=== PATIENT | male | born 1945 | race Caucasian/White ===

== ENCOUNTER 2016-03-25 10:25 | Observation (INO) | payer MEDICARE, OTHER ==
[2016-03-25] VITALS (8 sets, daily range): BP systolic 88–165; BP diastolic 54–95; PULSE 57–98; RESP 18–20; TEMP 96.1–98.6; O2SAT 96–100
[~2016-03-25] VITALS: Ht 190.5 cm; Wt 128.0 kg
[2016-03-25] MEDS ORDERED: METF1000 PO ×2 (10:58)
[2016-03-25] MEDS ORDERED: ASPI-147 PO (10:58)
[2016-03-25] MEDS ORDERED: PIOG15TA5 PO (10:58)
[2016-03-25] MEDS ORDERED: RANI150T PO (10:58)
[2016-03-25] MEDS ORDERED: METO100T PO (10:58)
[2016-03-25] MEDS ORDERED: ZOCO20TA PO (10:58)
[2016-03-25] MEDS ORDERED: SLO-500T PO (10:58)
[2016-03-25] MEDS ORDERED: GLIP10TA6 PO (10:58)
[2016-03-25] MEDS ORDERED: OMEG100010 PO (10:58)
[2016-03-25] MEDS ORDERED: AMLO10TA2 PO (10:58)
[2016-03-25] MEDS ORDERED: NITROGLYCERIN 2% OINT 1 GM PACKET TOP ONE (11:00)
[2016-03-25] MEDS ORDERED: SODIUM CHLORID 0.9% 500 ML INJ 500 ML IV ONE ×2 (11:00→12:30)
[2016-03-25] MEDS ORDERED: SODIUM CHLORIDE 0.9% FLUSH 5 ML FLUSH IVF PRN ×2 (11:00→13:30)
[2016-03-25] MEDS ORDERED: NITROGLYCERIN 0.4 MG SL 25 TABS/BTL SL ONE (11:00)
--- NOTE | 2016-03-25 11:06 | PD ---
HPI Chief Complaint: Chest Pain Time Seen by Provider: 10:41 Travel History International Travel<30 days: No Contact w/Intl Traveler<30days: No Traveled to known affect area: No History of Present Illness HPI Patient is a 70-year-old male who presents to the emergency department for two to three-week history of progressing shortness of breath that is worse with exertion. The patient then developed chest pain is located over the epigastrium area, like a "hiatal hernia ", and similar to his previous myocardial infarction. The patient also notes increasing shortness of breath and mild diaphoresis, according to the 's report. The patient does note the chest pain as "nagging ", associated with exertional shortness of breath, but no nausea or vomiting. The patient does have a history of previous myocardial infarction with previous CABG as well as a stat placed by his escort blind 2 years ago, Dr. Pulido. The patient does have a history of hypertension, hyperlipidemia, diabetes, and CAD with previous intervention. The patient called his escort blind office earlier today, Dr. Pulido, and was referred to the emergency department for further evaluation. PFSH Past Medical History Cardiac Catheterization: Yes (stents x2) Cardiovascular Problems: Yes ([place]) Diabetes: Yes Patient Takes Glucophage: Yes Hypertension: Yes Musculoskeletal: Yes (sciatica pain) Myocardial Infarction: Yes Tetanus Vaccination: Unknown Influenza Vaccination: No Past Surgical History Coronary Artery Bypass Graft: Yes (4 vessels) Social History Alcohol Use: No Tobacco Use: No Substance Use: No Allergies-Medications (Allergen,Severity, Reaction): Coded Allergies: No Known Allergies (Unverified , 03/25/16) Reported Meds & Prescriptions Reported Meds & Active Scripts Active Reported [place] 3 1000 mg ([place]-3 Fatty Acids) 1 Cap Cap Unknown Dose PO DAILY Slo-Niacin (Niacin) 500 Mg Tab 1,000 Mg PO DAILY Zocor (Simvastatin) 20 Mg Tab 20 Mg PO DAILY Pioglitazone (Pioglitazone HCl) 15 Mg Tab 15 Mg PO DAILY Glipizide 10 Mg Tab 10 Mg PO BIDAC Take 30 minutes before a meal Metoprolol Tartrate 100 Mg Tab 100 Mg PO BID Amlodipine (Amlodipine Besylate) 10 Mg Tab 10 Mg PO DAILY Ranitidine (Ranitidine HCl) 150 Mg Tab 150 Mg PO BID Metformin (Metformin HCl) 1,000 Mg Tab 1,500 Mg PO HS With meals Metformin (Metformin HCl) 1,000 Mg Tab 1,000 Mg PO AC BREAKFAST With meals Ecotrin Low Strength (Aspirin) 81 Mg Tabdr 162 Mg PO DAILY Review of Systems Except as stated in HPI: all other systems reviewed are Neg General / Constitutional: No: Fever Cardiovascular: Positive: Chest Pain or Discomfort, Diaphoresis, Dyspnea on exertion Respiratory: Positive: Shortness of Breath Gastrointestinal: No: Nausea, Vomiting, Abdominal Pain Musculoskeletal: Positive: Other (sciatica), No: Edema Physical Exam Narrative GENERAL: Awake, alert, pleasant 70-year-old male who appears his stated age and is in no acute respiratory distress. SKIN: Warm and dry. HEAD: Atraumatic. Normocephalic. EYES: No injection or drainage. ENT: No nasal bleeding or discharge. Mucous membranes pink and moist. NECK: Trachea midline. No JVD. CARDIOVASCULAR: Regular rate and rhythm. No murmur appreciated. Well-healed midline scar. RESPIRATORY: No accessory muscle use. Clear to auscultation. Breath sounds equal bilaterally. GASTROINTESTINAL: Abdomen soft, non-tender, nondistended. Obese, no rebound tenderness. MUSCULOSKELETAL: No obvious deformities. No clubbing. No cyanosis. No edema. Chronic venous stasis changes of the left lower extremity. NEUROLOGICAL: Awake and alert. No obvious cranial nerve deficits. Motor grossly within normal limits. Normal speech. PSYCHIATRIC: Appropriate mood and affect; insight and judgment normal. Data Data Last Documented VS Vital Signs Date Time Temp Pulse Resp B/P Pulse Ox O2 Delivery O2 Flow Rate FiO2 03/25/16 11:39 65 18 88/54 100 Nasal Cannula 2 03/25/16 10:42 98.6 Orders Electrocardiogram (03/25/16 ) B-Type Natriuretic Peptide (03/25/16 10:57) Ckmb (Isoenzyme) Profile (03/25/16 10:57) Complete Blood Count With Diff (03/25/16 10:57) Comprehensive Metabolic Panel (03/25/16 10:57) Magnesium (Mg) (03/25/16 10:57) Prothrombin Time / Inr (Pt) (03/25/16 10:57) Act Partial Throm Time (Ptt) (03/25/16 10:57) Troponin I (03/25/16 10:57) Lipase (03/25/16 10:57) Chest, Single Ap (03/25/16 10:57) Ecg Monitoring (03/25/16 10:57) Bilateral Bp Monitoring (03/25/16 10:57) Iv Access Insert/Monitor (03/25/16 10:57) Oximetry (03/25/16 10:57) Oxygen Administration (03/25/16 10:57) Nitroglycerin 2% Oint (Nitroglycerin 2% (03/25/16 11:00) Sodium Chloride 0.9% Flush (Ns Flush) (03/25/16 11:00) Nitroglycerin Sl (Nitrostat Sl) (03/25/16 11:00) Sodium Chlorid 0.9% 500 Ml Inj (Ns 500 M (03/25/16 11:00) Admit Order (Ed Use Only) (03/25/16 12:20) Sodium Chlorid 0.9% 500 Ml Inj (Ns 500 M (03/25/16 12:30) Labs Laboratory Tests Test 03/25/16 11:00 White Blood Count 7.7 TH/MM3 Red Blood Count 4.64 MIL/MM3 Hemoglobin 13.8 GM/DL Hematocrit 40.2 % Mean Corpuscular Volume 86.6 FL Mean Corpuscular Hemoglobin 29.8 PG Mean Corpuscular Hemoglobin 34.4 % Concent Red Cell Distribution Width 13.4 % Platelet Count 242 TH/MM3 Mean Platelet Volume 8.2 FL Neutrophils (%) (Auto) 63.3 % Lymphocytes (%) (Auto) 25.2 % Monocytes (%) (Auto) 9.5 % Eosinophils (%) (Auto) 1.5 % Basophils (%) (Auto) 0.5 % Neutrophils # (Auto) 4.9 TH/MM3 Lymphocytes # (Auto) 1.9 TH/MM3 Monocytes # (Auto) 0.7 TH/MM3 Eosinophils # (Auto) 0.1 TH/MM3 Basophils # (Auto) 0.0 TH/MM3 CBC Comment DIFF FINAL Differential Comment Prothrombin Time 11.2 SEC Prothromb Time International 1.0 RATIO Ratio Activated Partial 27.7 SEC Thromboplast Time Sodium Level 140 MEQ/L Potassium Level 4.6 MEQ/L Chloride Level 108 MEQ/L Carbon Dioxide Level 21.5 MEQ/L Anion Gap 11 MEQ/L Blood Urea Nitrogen 23 MG/DL Creatinine 1.69 MG/DL Estimat Glomerular Filtration 40 ML/MIN Rate Random Glucose 186 MG/DL Calcium Level 9.0 MG/DL Magnesium Level 1.6 MG/DL Total Bilirubin 0.6 MG/DL Aspartate Amino Transf 14 U/L (AST/SGOT) Alanine Aminotransferase 21 U/L (ALT/SGPT) Alkaline Phosphatase 64 U/L Total Creatine Kinase 67 U/L Troponin I LESS THAN 0.02 NG/ML B-Type Natriuretic Peptide 122 PG/ML Total Protein 7.0 GM/DL Albumin 3.4 GM/DL Lipase 229 U/L Exceptions Acute Myocardial Infarction ASA Not Given on Arrival: Already taken by patient Aspirin Comment: patient took to aspirin prior to arrival MDM Medical Decision Making Medical Screen Exam Complete: Yes Emergency Medical Condition: Yes Medical Record Reviewed: Yes Interpretation(s) EKG reveals normal sinus rhythm with sinus arrhythmia. Intraventricular conduction delay with QRS of 145 ms. Last Impressions Chest X-Ray 03/25/16 1057 Signed Impressions: Service Date/Time: Friday, March 25, 2016 10:56 - CONCLUSION: 1. Post surgical changes. No acute cardiopulmonary findings. Jamie Daniels MD Laboratory Tests Test 03/25/16 11:00 White Blood Count 7.7 TH/MM3 Red Blood Count 4.64 MIL/MM3 Hemoglobin 13.8 GM/DL Hematocrit 40.2 % Mean Corpuscular Volume 86.6 FL Mean Corpuscular Hemoglobin 29.8 PG Mean Corpuscular Hemoglobin 34.4 % Concent Red Cell Distribution Width 13.4 % Platelet Count 242 TH/MM3 Mean Platelet Volume 8.2 FL Neutrophils (%) (Auto) 63.3 % Lymphocytes (%) (Auto) 25.2 % Monocytes (%) (Auto) 9.5 % Eosinophils (%) (Auto) 1.5 % Basophils (%) (Auto) 0.5 % Neutrophils # (Auto) 4.9 TH/MM3 Lymphocytes # (Auto) 1.9 TH/MM3 Monocytes # (Auto) 0.7 TH/MM3 Eosinophils # (Auto) 0.1 TH/MM3 Basophils # (Auto) 0.0 TH/MM3 CBC Comment DIFF FINAL Differential Comment Prothrombin Time 11.2 SEC Prothromb Time International 1.0 RATIO Ratio Activated Partial 27.7 SEC Thromboplast Time Sodium Level 140 MEQ/L Potassium Level 4.6 MEQ/L Chloride Level 108 MEQ/L Carbon Dioxide Level 21.5 MEQ/L Anion Gap 11 MEQ/L Blood Urea Nitrogen 23 MG/DL Creatinine 1.69 MG/DL Estimat Glomerular Filtration 40 ML/MIN Rate Random Glucose 186 MG/DL Calcium Level 9.0 MG/DL Magnesium Level 1.6 MG/DL Total Bilirubin 0.6 MG/DL Aspartate Amino Transf 14 U/L (AST/SGOT) Alanine Aminotransferase 21 U/L (ALT/SGPT) Alkaline Phosphatase 64 U/L Total Creatine Kinase 67 U/L Troponin I LESS THAN 0.02 NG/ML B-Type Natriuretic Peptide 122 PG/ML Total Protein 7.0 GM/DL Albumin 3.4 GM/DL Lipase 229 U/L Differential Diagnosis Differential diagnosis includes acute coronary syndrome, STEMI, cardiomyopathy, congestive heart failure, pleural effusion, pulmonary embolism, pneumonia, deconditioning. Narrative Course IV was established, labs are drawn and sent, and the patient was placed on cardiac telemetry monitoring and continuous pulse oximetry monitoring. EKG was ordered and interpreted. Chest x-ray was ordered. The patient took 2 aspirin prior to arrival. The patient was administered nitroglycerin sublingual and placed on Nitropaste. The patient's chest pain did improve with nitroglycerin. However, his blood pressure did decrease, therefore, patient was placed on IV fluids. Initial troponin is negative. I had a discussion with the patient's escort blind, Dr. Pulido, who requests admission to the chest pain Center. I will discuss the findings and the case with the chest pain physician when he evaluates the patient. Physician Communication Physician Communication I discussed the patient with Dr. Pulido who agrees with 23 hour observation to the chest pain Center. Diagnosis Primary Impression: Chest pain Qualified Code: R07.2 - Precordial pain Admitting Information Admitting Physician Requests: Observation Condition: Stable Charli Renner MD Mar 25, 2016 11:06
[2016-03-25 11:09] LABS: AUTOMATED NEUTROPHIL # 4.9 TH/MM3 (1.8-7.7); BASOPHIL % 0.5 % (0.0-2.0); EOSINOPHIL # 0.1 TH/MM3 (0-0.4); EOSINOPHIL % 1.5 % (0.0-4.0); HEMATOCRIT 40.2 % (39.0-51.0); HEMO FLAGS DIFF FINAL; LYMPH % 25.2 % (9.0-44.0); LYMPHOCYTE # 1.9 TH/MM3 (1.0-4.8); MEAN CELL VOLUME 86.6 FL (80.0-100.0); MEAN CORPUSCULAR HEMOGLOBIN 29.8 PG (27.0-34.0); MEAN CORPUSCULAR HGB CONC 34.4 % (32.0-36.0); MONO % 9.5 % (0.0-8.0); NEUT % 63.3 % (16.0-70.0); PLATELET COUNT 242 TH/MM3 (150-450); RED BLOOD COUNT 4.64 MIL/MM3 (4.50-5.90); RED CELL DISTRIBUTION WIDTH 13.4 % (11.6-17.2); WHITE BLOOD COUNT 7.7 TH/MM3 (4.0-11.0)
[2016-03-25 11:20] LABS: APTT (PATIENT) 27.7 SEC (24.3-30.1); PROTHROMBIN TIME - PATIENT 11.2 SEC (9.8-11.6)
--- NOTE | 2016-03-25 11:34 | RADRPT ---
EXAM DATE/TIME: 03/25/2016 10:56 [facility] COMPARISON: No previous studies available for comparison. INDICATIONS : Chest pain since yesterday. MEDICAL HISTORY : Hypertension. Cardiovascular disease. SURGICAL HISTORY : CABG. ENCOUNTER: Initial ACUITY: 2 days PAIN SCORE: 5/10 LOCATION: Bilateral chest FINDINGS: A single view of the chest demonstrates the lungs to be symmetrically aerated without evidence of mas s, infiltrate or effusion. The cardiomediastinal contours are unremarkable. The patient is post medi an sternotomy. Osseous structures are intact. CONCLUSION: 1. Post surgical changes. No acute cardiopulmonary findings. Jamie Daniels MD on March 25, 2016 at 11:32 Board Certified Radiologist. This report was verified electronically.
[2016-03-25 11:49] LABS: ALKALINE PHOSPHATASE 64 U/L (45-117); ALT (GPT) 21 U/L (12-78); ANION GAP 11 MEQ/L (5-15); AST (GOT) 14 U/L (15-37); BICARBONATE 21.5 MEQ/L (21.0-32.0); BLOOD UREA NITROGEN 23 MG/DL (7-18); CHLORIDE 108 MEQ/L (98-107); GLOMERULAR FILTRATION RATE 40 ML/MIN (>89); MAGNESIUM 1.6 MG/DL (1.5-2.5); SODIUM (NA) 140 MEQ/L (136-145); TOTAL BILIRUBIN ADULT 0.6 MG/DL (0.2-1.0)
[2016-03-25 11:51] LABS: CREATINE KINASE 67 U/L (39-308); POTASSIUM 4.6 MEQ/L (3.5-5.1)
--- NOTE | 2016-03-25 12:21 | EKG ---
Date Performed: 03/25/2016 Time Performed: 10:44:27 PTAGE: 70 years EKG: Sinus rhythm WITH MARKED SINUS ARRHYTHMIA WITH FIRST DEGREE AV BLOCK INTRAVENTRICULAR CONDUCTION DELAY ABNORMAL E CG INTERPRETATION BASED ON A DEFAULT AGE OF 40 YEARS NO PREVIOUS TRACING DOCTOR: Jhonathan Miranda Interpretating Date/Time 03/25/2016 12:19:49
[2016-03-25] MEDS ORDERED: ONDANSETRON HCL 4 MG/2 ML VIAL IV PRN (13:30)
[2016-03-25] MEDS ORDERED: ACETAMINOPHEN 500 MG CPLT PO PRN (13:30)
[2016-03-25] MEDS ORDERED: ACETAMINOPHEN/HYDROcodone 325 MG/7.5 MG TAB PO PRN (13:30)
[2016-03-25] MEDS ORDERED: GLUCAGON 1 MG/ML VIAL IM/SQ PRN (13:45)
[2016-03-25] MEDS ORDERED: DEXTROSE 50% IN WATER 50 ML VIAL(D50) IV PRN (13:45)
--- NOTE | 2016-03-25 14:32 | MH ---
cc: EMELINA ADAM MD DATE OF ADMISSION: 03/25/2016 DATE OF 1945 CHIEF COMPLAINT Chest pain and shortness of breath. HISTORY OF PRESENT ILLNESS This is a 70-year-old male with history of CAD with CABG in 2001 as well as stenting two or three years ago who presents to the ED complaining of shortness of breath with exertion and chest discomfort. The patient states for the last four days he has had dyspnea with exertion which to him the exertion has been walking even as little as 10 steps. He has not been coughing. No wheezing, no hemoptysis. He also states that beginning yesterday morning he started having substernal chest discomfort that he describes as a nagging discomfort that was there all day long and even throughout the night until this morning. He states yesterday morning he took Nitro at home which did not help but he also acknowledged the fact that it was an medication. He states he was given two nitroglycerin in the ER and some nitroglycerin paste and the discomfort seemed to just essentially release and has not recurred. He has had no nausea or diaphoresis with the discomfort in his chest. The discomfort in his chest did not worsen his shortness of breath. The discomfort, however, does feel similar to when he had an [place] in 2000 which was prior to his bypass. He follows with Dr. Pulido and believes his last stress test was as couple of years ago and the ER physician did speak with Dr. Pulido who stated his last stress test was in December of 2013 which was non-ischemic. The ER physician states that Dr. Pulido recommended the patient be admitted to the [facility] Center for nuclear stress testing. The patient denies any recent illnesses. He denies fevers or chills. PAST MEDICAL HISTORY 1. CAD with coronary artery bypass grafting in 2001. He has had stenting two or three years ago. 2. Hypertension. 3. Diabetes. 4. Hyperlipidemia. 5. Chronic back pain with sciatica issues. 6. Past history of tobacco abuse but quit smoking in 1984. FAMILY HISTORY Positive for CAD in his father. SOCIAL HISTORY The patient quit smoking in 1984. Prior to this he smoked about a pack per day for 25 years. He denies alcohol or illicit drugs. PAST SURGICAL HISTORY 1. Coronary artery bypass graft in 2001. 2. Heart catheterization with stenting two or three years ago. 3. Left patellar tendon repair. ALLERGIES No known drug allergies. MEDICATIONS 1. Metoprolol. 2. Metformin. 3. Amlodipine. 4. Simvastatin. 5. Ranitidine. 6. Aspirin. 7. Glipizide. 8. Pioglitazone. 9. Niacin. 10. Supplements and vitamins. REVIEW OF SYSTEMS GENERAL: Denies fever or chills. Denies recent illnesses. HEENT: Denies headache, earache, sore throat, difficulty swallowing. CARDIOVASCULAR: Describes the discomfort as mentioned above. Denies diaphoresis. Denies sensation of heart beating rapidly or irregularly. Denies syncope. RESPIRATORY: He has been short of breath. He has been short of breath with exertion. Denies coughing, wheezing or hemoptysis. GI: Denies nausea, vomiting, diarrhea, abdominal pain or blood in the stool. MUSCULOSKELETAL: He complains of chronic back pain. Denies calf pain or swelling. NEUROVASCULAR: Denies headache or dizziness. ENDOCRINE: Denies polyuria or polydipsia. HEMATOLOGIC: Denies easy bruising. SKIN: Denies rash or itching. PHYSICAL EXAMINATION VITAL SIGNS: In the emergency department initially included a blood pressure of 165/80, heart rate of 70, respiratory rate 20, pulse oximetry 96% on room air and he is afebrile. The most recent vital signs include a blood pressure of 118/59, heart rate 65, respiratory rate 18, pulse oximetry is 100% on 2 liters by nasal cannula. GENERAL: The patient is seen in the examination room in no apparent distress. He is pleasant. He speaks in clear and complete sentences. HEENT: Head is atraumatic, normocephalic. NECK: Supple without lymphadenopathy. Trachea is midline. No JVD or carotid bruits. CARDIOVASCULAR: Regular rate and rhythm without murmur, gallop or rub. RESPIRATORY: Lungs are clear to auscultation bilaterally. No wheezing, rales or rhonchi. There is no reproducible chest wall discomfort. No use of accessory muscles. ABDOMEN: Nontender, nondistended. Bowel sounds are normal. No guarding or rebound. No obvious pulsatile mass or bruit. No CVA tenderness. Strong femoral pulses bilaterally. MUSCULOSKELETAL: The patient is moving upper and lower extremities freely. No joint tenderness or edema. No calf tenderness or edema. No Seth's sign. Strong pulses in the upper and lower extremities. NEUROVASCULAR: The patient is alert and oriented. Cranial nerves II through XII are grossly intact. There are no focal deficits and speech is clear. SKIN: No rash and turgor is normal. LABS CBC is unremarkable. Coagulation studies are unremarkable. A complete metabolic panel has a BUN elevated at 23, creatinine elevated at 1.69, GFR decreased at 40, glucose elevated at 186, otherwise the rest is seen to be unremarkable. BNP is mildly elevated at 122. First set of serial cardiac enzymes normal. Lipase normal at 229. X-RAYS Single view chest x-ray read by radiologist as no acute cardiopulmonary findings. There are post-surgical changes as he has had prior sternotomy. EKG Initial EKG has sinus arrhythmia. First degree AV block. There is intraventricular conduction delay. No significant ST segment depression or elevation. ASSESSMENT AND PLAN 1. Chest pain: The patient was admitted to the Chest Pain Center to evaluate his chest discomfort. He will be seen by Dr. Emelina Adam of Cardiology in the Chest Pain Center. The ER physician, Dr. Charli Renner, has spoken with Dr. Pulido who recommended admission to the Chest Pain Center and to have a nuclear stress test. He will have another troponin and, as he had prolonged chest discomfort, if the second troponin is elevated, we would likely then proceed with a Lexiscan. If the stress test were then to be unremarkable, he would be discharged home with instructions to follow up with his local physician as well as his registered nurse bone marrow transplant. If abnormal, will address at that time. 2. CAD: We will reassess his visit with stress testing. 3. Hypertension: Continue current medications. 4. Hyperlipidemia: Continue current medications. 5. Sciatica: Will have Lortab p.r.n. 6. Diabetes: We will hold his oral hyperglycemic and will have sliding scale coverage while in the Chest Pain Center. He has been advised to follow a diabetic diet. The patient is stable at this time. He is agreeable to this plan. Dictated by: Bart Macdonald PA-C MD KASSI Tom/YAAKOV /1:43 PM /2:26 PM
[2016-03-25] MEDS ORDERED: INSULIN ASPART SUPPLEMENTAL SCALE SQ SCH (16:00)
--- NOTE | 2016-03-25 17:15 | HHI.DCPOC ---
Discharge Care Plan Diagnosis: (1) Chest pain (2) CAD (coronary artery disease) (3) Hx of CABG (4) H/O heart artery stent (5) Hyperlipidemia (6) Hypertension (7) DM (diabetes mellitus) Goals to Promote Your Health * To prevent worsening of your condition and complications * To maintain your health at the optimal level Directions to Meet Your Goals Take your medications as prescribed Follow your dietary instruction Follow activity as directed Keep your appointments as scheduled Take your immunizations and boosters as scheduled If your symptoms worsen call your PCP, if no PCP go to Urgent Care Center or Emergency Room Smoking is Dangerous to Your Health. Avoid second hand smoke Call the 24-hour hour crisis hotline for domestic abuse at Danny Macdonald Mar 25, 2016 17:15
[2016-03-25] MEDS ORDERED: REGADENOSON INJ 0.4 MG/5 ML SYR ONE (17:37)
--- NOTE | 2016-03-25 19:02 | RADRPT ---
EXAM DATE/TIME: 03/25/2016 17:20 [facility] COMPARISON: No previous studies available for comparison. INDICATIONS : Chest pain with shortness of breath for one day. Angina. Coronary artery bypass graft. DOSE: 11 mCi Tc99m Myoview at stress. 35 mCi Tc99m Myoview at rest. 0.4 mg Lexiscan STRESS SYMPTOMS: Shortness of breath. EJECTION FRACTION: 39% MEDICAL HISTORY : Diabetes mellitus type 2. Hypertension. Cardiovascular disease SURGICAL HISTORY : Coronary artery stent. ENCOUNTER: Initial ACUITY: 1 day PAIN SCALE: 8/10 LOCATION: chest TECHNIQUE: The patient underwent pharmacologic stress with infusion of prescribed dose. Continuous ECG tracing was monitored during stress. Gated SPECT imaging was performed after stress and conventional SPECT i maging was performed at rest. The examination was performed on a SPECT/CT scanner, both attenuation and non-corrected datasets were reviewed. FINDINGS: DISTRIBUTION: The maximum perfused segment at stress is in the anterior wall. PERFUSION STUDY: No reversible perfusion defects. Fixed defect seen within the lateral and inferior wall likely from o ld infarct. GATED STUDY: Global hypokinesia. CONCLUSION: 1. No reversible perfusion defects to suggest ischemia. 2. Probable old infarcts along the inferolateral little. 3. Ejection fraction 39%. RISK CATEGORY: Intermediate (1-3% Annual Mortality Rate) Damon Galeas MD on March 25, 2016 at 18:57 Board Certified Radiologist. This report was verified electronically.
[2016-03-25] MEDS ORDERED: SODIUM CHLORIDE 0.9% FLUSH 5 ML FLUSH IVF SCH (21:00)
[2016-03-25] MEDS ORDERED: METOPROLOL TARTRATE 100 MG TAB PO SCH (21:00)
[2016-03-25] MEDS ORDERED: FAMOTIDINE 20 MG TAB PO SCH (21:00)
--- NOTE | 2016-03-26 08:02 | EKG ---
Date Performed: 03/25/2016 Time Performed: 14:06:32 PTAGE: 70 years EKG: SINUS BRADYCARDIA WITH FIRST DEGREE AV BLOCK MARKED LEFT AXIS DEVIATION LEFT BUNDLE BRANCH BLOCK ABNORMAL ECG Since PREVIOUS TRACING , no significant change noted PREVIOUS TRACIN03/25/2016 10.44 DOCTOR: Nicol Vo Interpretating Date/Time 03/26/2016 08:00:18
--- NOTE | 2016-03-26 08:02 | TR ---
Date Performed: 03/25/2016 Time Performed: 17:46:29 DOCTOR: Nicol Vo DRUG LIST: CLINICAL HISTORY: CHEST PAIN REASON FOR TEST: REASON FOR ENDING: OBSERVATION: CONCLUSION: Lexiscan stress test was performed under standard four minute protocol. [place]ion[place] e was injected one minute prior to ending the test. No electrocardiographic abormalities were present to suggest ischemia. Nuclear imaging and interpretation are pending. COMMENTS:
[2016-03-26] MEDS ORDERED: ASPIRIN 325 MG TAB PO SCH (09:00)
[2016-03-26] MEDS ORDERED: PRAVASTATIN SOD 40 MG TAB PO SCH (09:00)
== END 2016-03-25 20:29 | disposition home or self-care (01) ==
LOC: NEPC 10:25 → NEDA 12:21 → NEPHCDU 14:29
PROVIDERS: ADMIT Internal Medicine Cardiovascular Disease; ATTEND Internal Medicine Cardiovascular Disease
DX: R07.2 Precordial pain (principal); I25.10 Atherosclerotic heart disease of native coronary artery without angina pectoris; I10 Essential (primary) hypertension; E78.5 Hyperlipidemia, unspecified; E11.65 Type 2 diabetes mellitus with hyperglycemia; R06.02 Shortness of breath; R61 Generalized hyperhidrosis; I25.2 Old myocardial infarction; Z95.1 Presence of aortocoronary bypass graft; Z79.899 Other long term (current) drug therapy; Z79.84 Long term (current) use of oral hypoglycemic drugs; R06.00 Dyspnea, unspecified
CPT/HCPCS: 71010; 78452; 80053; 82550; 83690; 83735; 83880; 84484; 85025; 85610; 85730; 93005; 93017; 96374; 99285; A9502; G0378; J2785; J7040